=== PATIENT | female | born 1955 | race Caucasian/White ===

== ENCOUNTER 2018-04-17 15:05 | Emergency (ER) | payer MEDICARE, BC ==
[2018-04-17] MEDS ORDERED: Bacitracin/Neomycin/Polymyxin B Oint 0.9 GM U/D Packet TOP ONE (16:33)
[2018-04-17] MEDS ORDERED: Diphtheria,Pertussis(Acell),Tetanus Vaccine 0.5 ML Syringe IM ONE (16:36)
--- NOTE | 2018-04-17 16:36 | EDM.PDOC ---
ED HPI GENERAL MEDICAL PROBLEM - General Chief Complaint: General Stated Complaint: fish hook Time Seen by Provider: 04/17/18 15:10 Source of Information: Reports: Patient History Limitations: Reports: No Limitations - History of Present Illness INITIAL COMMENTS - FREE TEXT/NARRATIVE: This patient is a 62 year old female that presents to the ER. Patient reports she was out fishing and her grandson accidentally got a fishing hook in her left 2nd digit finger. The patient report pain at the site. Denies other injury. Fishing hook and lure intact. Pulses +2, cap refill < 2sec, sensory/ motor function intact. Neurovascular intact. Onset: Today Onset Date: 04/17/18 Duration: Hour(s): (1) Location: Reports: Upper Extremity, Left Severity: Mild Improves with: Reports: Immobilization Worsens with: Reports: Movement Associated Symptoms: Reports: No Other Symptoms. Denies: Confusion, Chest Pain , Cough, cough w sputum, Diaphoresis, Fever/Chills, Headaches, Loss of Appetite , Malaise, Nausea/Vomiting, Rash, Seizure, Shortness of Breath, Syncope, Weakness Left Hand Pain Score (Numeric/FACES): 6 - Related Data Allergies Allergy/AdvReac Type Severity Reaction Status Date / Time acetaminophen Allergy Cannot Verified 04/17/18 15:14 [From Lorcet (hydrocodone)] Remember hydrocodone Allergy Cannot Verified 04/17/18 15:14 [From Lorcet (hydrocodone)] Remember lisinopril Allergy Cannot Verified 04/17/18 15:14 Remember Home Meds: Home Meds Levothyroxine Sodium [Synthroid] 25 mcg PO ACBREAKFAST 04/17/18 [History] Metoprolol Succinate [Toprol XL] 25 mg PO DAILY 04/17/18 [History] Pantoprazole [ProTONIX] 40 mg PO DAILY 04/17/18 [History] Rivaroxaban [Xarelto] 20 mg PO DAILY 04/17/18 [History] sitaGLIPtin Phos/Metformin HCl [Janumet 50-1,000 MG] 1 tab PO WITHBREAKFAST 11/04 [History] Past Medical History Cardiovascular History: Reports: Afib, Blood Clots/VTE/DVT Endocrine/Metabolic History: Reports: Diabetes, Type II, Hypothyroidism - Past Surgical History Female Surgical History: Reports: Hysterectomy Musculoskeletal Surgical History: Reports: Knee Replacement Social & Family History - Family History Family Medical History: Noncontributory - Tobacco Use Smoking Status *Q: Never Smoker Second Hand Smoke Exposure: No ED ROS GENERAL - Review of Systems Review Of Systems: See Below Constitutional: Reports: No Symptoms HEENT: Reports: No Symptoms Respiratory: Reports: No Symptoms Cardiovascular: Reports: No Symptoms Endocrine: Reports: No Symptoms : Reports: No Symptoms Musculoskeletal: Reports: Other (left 4th digit fish hok foreign body) Skin: Reports: Other (FB left 4th finger) Neurological: Reports: No Symptoms Psychiatric: Reports: No Symptoms Hematologic/Lymphatic: Reports: No Symptoms Immunologic: Reports: No Symptoms ED EXAM, GENERAL - Physical Exam Exam: See Below Exam Limited By: No Limitations General Appearance: Alert, WD/WN, No Apparent Distress Respiratory/Chest: No Respiratory Distress, Lungs Clear, Normal Breath Sounds, No Accessory Muscle Use, Chest Non-Tender Cardiovascular: Normal Peripheral Pulses, Regular Rate, Rhythm, No Edema, No Gallop, No JVD, No Murmur, No Rub Peripheral Pulses: 2+: Radial (L), Radial (R) Extremities: Normal Range of Motion, No Pedal Edema, Normal Capillary Refill, Other (Fish hook left 4th digit. Lure intact. Hook intact. ) Neurological: Alert, Oriented Psychiatric: Normal Affect, Normal Mood Skin Exam: Warm, Dry, Normal Color, No Rash Lymphatic: No Adenopathy ED GENERAL MEDICAL PROCEDURES - Additional/Other Procedure(s) Other (Free Text) Procedure(s): FB fishing hook removal. I used Vicryl suture thread to wrap around the hook at base of finger entry. I pushed hook downward motion, then pulled the string quickly medially. The hook was removed intact, without complication. Puncture wound remained, no laceration. Wound was cleaned by nurse with soap and water, irrigated. Antibiotic ointment was applied. Patient kept fishing hook and lure. Course - Vital Signs Last Recorded V/S: Last Vital Signs Temp 98.1 F 04/17/18 15:18 Pulse 57 L 04/17/18 15:18 Resp 18 04/17/18 15:18 BP 131/78 04/17/18 15:18 Pulse Ox 97 04/17/18 15:18 - Orders/Labs/Meds Orders: Active Orders 24 hr Category Date Time Status Vaccines to be Administered [RC] PER UNIT ROUTINE Care 04/17/18 16:36 Ordered Hand Comp Min 3V Lt [CR] Stat Exams 04/17/18 15:26 Taken Diphth,Pertuss(Acell),Tet Vac [Adacel] Med 04/17/18 16:36 Once 0.5 ml IM .ONCE ONE Meds: Medications Discontinued Medications Generic Name Dose Route Start Last Admin Trade Name Kassandra PRN Reason Stop Dose Admin Neomycin/Polymyxin/Bacitracin 1 each 04/17/18 16:33 Triple Antibiotic Oint TOP 04/17/18 16:34 ONETIME ONE - Radiology Interpretation Free Text/Narrative:: Left hand: Fishing hook fb in left 4th digit. No bone involvement. no fx. Departure - Departure Time of Disposition: 16:34 Disposition: Home, Self-Care 01 Condition: Good Clinical Impression: Fish hook injury of finger of left hand Qualifiers: Encounter type: initial encounter Qualified Code(s): S69.92XA - Unspecified injury of left wrist, hand and finger(s), initial encounter - Discharge Information Instructions: Puncture Wound, [id number] Referrals: Timmy Khalil MD [Primary Care Provider] - Forms: ED Department Discharge Additional Instructions: Followup with your primary care provider as needed Return to the ER for worsening of condition or any emergent concerns Watch for redness, drainage, heat, fever, vomiting. Wash the area with soap and water twice a day. Apply antibiotic ointment - My Orders Last 24 Hours: My Active Orders 04/17/18 15:26 Hand Comp Min 3V Lt [CR] Stat 04/17/18 16:36 Vaccines to be Administered [RC] PER UNIT ROUTINE Diphth,Pertuss(Acell),Tet Vac [Adacel] 0.5 ml IM .ONCE ONE - Assessment/Plan Last 24 Hours: My Active Orders 04/17/18 15:26 Hand Comp Min 3V Lt [CR] Stat 04/17/18 16:36 Vaccines to be Administered [RC] PER UNIT ROUTINE Diphth,Pertuss(Acell),Tet Vac [Adacel] 0.5 ml IM .ONCE ONE
== END 2018-04-17 16:48 | disposition home or self-care (01) ==
LOC: CC.ED 15:05
DX: S60.455A Superficial foreign body of left ring finger, initial encounter (principal); I48.91 Unspecified atrial fibrillation; E11.9 Type 2 diabetes mellitus without complications; E03.9 Hypothyroidism, unspecified; W45.8XXA Other foreign body or object entering through skin, initial encounter; Z23 Encounter for immunization; Z88.8 Allergy status to other drugs, medicaments and biological substances; Z88.6 Allergy status to analgesic agent; Z79.899 Other long term (current) drug therapy; Z79.84 Long term (current) use of oral hypoglycemic drugs; Z79.01 Long term (current) use of anticoagulants
CPT/HCPCS: 73130-LT; 90471; 90715; 99283

== ENCOUNTER → 2020-04-04 | Day surgery (SDC) | payer MEDICARE, BC ==
[~2020-04-04] MED LIST: Lidocaine 1% 20 ML MDV ONE
== END ==
LOC: CC.SDS 10:36
PROVIDERS: ATTEND Family Medicine
DX: I87.2 Venous insufficiency (chronic) (peripheral) (principal); I83.813 Varicose veins of bilateral lower extremities with pain; E11.40 Type 2 diabetes mellitus with diabetic neuropathy, unspecified; F32.9 Major depressive disorder, single episode, unspecified; I10 Essential (primary) hypertension; K21.9 Gastro-esophageal reflux disease without esophagitis; E78.5 Hyperlipidemia, unspecified; E03.9 Hypothyroidism, unspecified; Z88.8 Allergy status to other drugs, medicaments and biological substances; Z79.899 Other long term (current) drug therapy
CPT/HCPCS: A4216

== ENCOUNTER → 2020-04-22 | Day surgery (SDC) | payer MEDICARE, BC | LOC: CC.SDS 10:59 | PROVIDERS: ATTEND Family Medicine | DX: I87.2 Venous insufficiency (chronic) (peripheral) (principal); I83.811 Varicose veins of right lower extremity with pain; E11.40 Type 2 diabetes mellitus with diabetic neuropathy, unspecified; F32.9 Major depressive disorder, single episode, unspecified; I10 Essential (primary) hypertension; K21.9 Gastro-esophageal reflux disease without esophagitis; E78.5 Hyperlipidemia, unspecified; E03.9 Hypothyroidism, unspecified; G47.30 Sleep apnea, unspecified; Z88.8 Allergy status to other drugs, medicaments and biological substances; Z79.899 Other long term (current) drug therapy; Z79.890 Hormone replacement therapy | CPT/HCPCS: 36475; A4216 ==